=== PATIENT | male | born 1975 | race Two or more races ===

== ENCOUNTER 2021-07-05 09:26 | Emergency (ER) | payer BC, SELFPAY ==
[2021-07-05 09:34] VITALS: BP 145/95; PULSE 94; RESP 16; TEMP 36.6; O2SAT 100; BMI 35.9
--- NOTE | 2021-07-05 09:51 | ED_ITS ---
HPI - GI Bleed General Chief complaint: Urogenital-Male Stated complaint: HEMRHOIDS Time Seen by Provider: 07/05/21 09:34 Source: patient Mode of arrival: ambulatory Limitations: no limitations History of Present Illness HPI Narrative: 45-year-old male with a past medical history of diabetes and hypertension presenting to the ED with complaints of blood on toilet paper when he wipes due to his hemorrhoids for the past 2 days after he ate spicy food. He went to an urgent care prior to arrival and they explained to him that he would have to come here for further evaluation treatment. He denies any other sympto ms complaints or concerns at this time. MD complaint: blood on toilet paper (Due to hemorrhoids) Onset (ago): day(s) (Past 2 days) Pain Consistency: constant Severity: mild Relieving factors: none Exacerbating factors: bowel movement Context: hemorrhoids Associated symptoms: denies other symptoms Treatments Prior to Arrival: none Related Data Previous Rx's Medication Instructions Recorded acetaminophen 500 mg tablet 1,000 mg PO QID PRN #14 tab 07/05/21 (Tylenol Extra Strength) docusate sodium 100 mg capsule 100 mg PO BID PRN #14 cap 07/05/21 (Colace) hydrocortisone acetate 25 mg 25 mg WI BID #12 ea 07/05/21 rectal suppository (Anucort-HC) polyethylene glycol 3350 17 17 g PO BID 7 Days #238 g 07/05/21 gram/dose oral powder (Miralax) tramadol 50 mg tablet 50 mg PO Q8H PRN #14 tab 07/05/21 Allergies Allergy/AdvReac Type Severity Reaction Status Date / Time No Known Allergies Allergy Unverified 06/02/20 17:53 Review of Systems Review of Systems: Constitutional : No Weight loss, No Fever, No Chills, No Night Sweats, No Fatigue, NoMalaise ENT/Mouth: No ear pain, No sore throat, No Difficulty swallowing Cardiovascular : No Chest Pain, No SOB, No Dyspnea on Exertion, No Orthopnea, NoEdema, No Palpitations Respiratory : No Cough, No Sputum, No Wheezing, No Dyspnea Gastrointestinal : Positive hemorrhoids with blood on toilet paper, No Nausea, No Vomiting, No abdominal pain, No Diarrhea, No blood streaked emesis, No coffee-ground emesis, No gross hematemesis, No blood streak stool, No gross hematochezia, No Melena Genitourinary : No irregular bleeding, No Dysuria, No Urinary Frequency, No Hematuria,No Urinary Incontinence, No Urgency, No Flank Pain Musculoskeletal : No joint pain, No Myalgias, No Joint Swelling Skin : No Skin Lesions, No rash Neuro : No Weakness, No Numbness, No Paresthesias, No Loss of Consciousness, NoDizziness, No Headache Psych : No Social Issues, Heme/Lymph: No Bruising, No Bleeding,No Lymphadenopathy Endocrine : No Polyuria, No Polydipsia, No Temperature Intolerance Yes all other systems are reviewed and are negative [facility] Past Medical History Attestation statement: The following information was validated with the patient. Medical History Bradycardia Diabetes HTN (hypertension) Physical Exam Vital Signs: Vital Signs: Last Vital Signs Temp 97.8 F 07/05/21 09:34 Pulse 94 07/05/21 09:34 Resp 16 07/05/21 09:34 BP 145/95 H 07/05/21 09:34 Pulse Ox 100 07/05/21 09:34 Body Mass Index 35.9 vital signs have been reviewed as normal and appeared to be correct. Blood pressure hypertensive 145/95 Heart rate normal. Respiration rate normal. Temperature normal. Oxygen saturation normal. Appearance: Alert. Oriented X3. No acute distress. Head: Normal external exam. Normocephalic. Eyes: PERRLA. EOMI. Conjunctiva and sclera normal. Eyelids normal. ENT: Pharynx normal. Uvula midline. Moist mucous membranes. Neck: Normal inspection. Neck supple. FROM. No adenopathy. No meningeal signs. CVS: Normal heart rate and rhythm. Heart sound normal. No murmurs noted. Pulses normal throughout. Respiratory: No respiratory distress. Painless inspiration. Breath sounds no rmal. No wheezes/rales/rhonchi noted. Chest nontender. No accessory muscle usage noted or decreased air movement noted. Abdomen: Soft and nontender. Nondistended. No guarding. No rigidity. Bowel so unds normal in all 4 quadrants. No distention noted. No organomegaly noted. No visible injury noted. No rebound tenderness. Negative Rovsing sign. Negative obturator's sign. Negative psoas sign. Negative Padron sign. : Supervised by MARKUS Li-patient noted to have 1 medium-sized external thrombosed hemorrhoid noted that already appears to open on its own. No other hemorrhoids noted. Back: Full range of motion noted. Skin: Skin warm and dry. Normal skin color. Normal skin turgor. No rashes/lesions/lacerations noted. Extremities: Extremities exhibit normal range of motion. Extremities nontender. Neuro: Oriented X 3. No motor deficit. No sensory deficit. Reflexes normal. Normal steady gait. Course Course Course Narrative: 45-year-old male with a past medical history of diabetes and hypertension presenting to the ED with complaints of blood on toilet paper when he wipes due to his hemorrhoids for the past 2 days after he ate spicy food. He went to an urgent care prior to arrival and they explained to him that he would have to come here for further evaluation treatment. He denies any other symptoms complaints or concerns at this time. On exam patient noted to have an external thrombosed hemorrhoid that already opened on its own therefore was able to manually express the blood clots out. Patient tolerated procedure well. No complications. Patient reports he feels moderate symptomatic relief. I explained to him that we will give him MiraLax and Colace along with topical cream for his hemorrhoids and pain meds although explained to him that the pain med can make him constipated and make his hemorrhoids worse therefore he needs to be careful about this he understands this. Will also refer to Dr. Frankel the general surgeon for further evaluation treatment along with instructions to return if any new or worsening symptoms to follow up with primary care provider as well. Patient understands agrees with this plan. MDM - GI Bleed Medical Records Attestation: I reviewed the patient's medical records. Procedures Abscess I/D Site: other (Hemorrhoid) Side (if applicable): right Technique: other (Manual expression) Sent for culture/gram staining?: No Irrigation: Yes Packing used?: none Complications: other (No complications) Discharge Plan Discharge Clinical Impression: Hemorrhoids, external, thrombosed Patient Disposition: Home, Self-Care Instructions: Hemorrhoids (ED) Prescriptions: New polyethylene glycol 3350 [Miralax] 17 gram/dose powder 17 g PO BID 7 Days Qty: 238 RF: 0 docusate sodium [Colace] 100 mg capsule 100 mg PO BID PRN (Reason: Constipation) Qty: 14 RF: 0 tramadol 50 mg tablet 50 mg PO Q8H PRN (Reason: pain) Qty: 14 RF: 0 acetaminophen [Tylenol Extra Strength] 500 mg tablet 1,000 mg PO QID PRN (Reason: fever or pain) Qty: 14 RF: 0 hydrocortisone acetate [Anucort-HC] 25 mg suppository 25 mg WI BID Qty: 12 RF: 0 Referrals: Temo Frankel MD [Physician] - 1 day (External thrombosed hemorrhoids) Stand Alone Forms: Work/School Release Print Language: Nauruan
[2021-07-05] MEDS: Cocoa Butter/Zinc Oxide SUPP.RECT 1 SUPP PR (10:04)
== END 2021-07-05 10:28 | disposition home or self-care (01) ==
LOC: HO.ED 10:05
PROVIDERS: Emergency Provider Emergency Medicine Emergency Medical Services
DX: K64.5 Perianal venous thrombosis (principal); E11.9 Type 2 diabetes mellitus without complications; I10 Essential (primary) hypertension
CPT/HCPCS: 99284

== ENCOUNTER → 2021-07-12 10:36 | Outpatient (BNVA) | payer BC, SELFPAY | PROVIDERS: PCP Internal Medicine; Referring Provider Internal Medicine; Visit Provider Surgery ==

== ENCOUNTER 2021-09-27 10:52 | Outpatient (REF) | payer BC, SELFPAY ==
[2021-09-27 12:24] LABS: Binax Internal Control QC Valid; Binax Now Covid-19 Ag Positive (Negative)
== END 2021-09-27 10:53 | disposition home or self-care (01) ==
LOC: HO.LAB 10:52
PROVIDERS: Visit Provider Internal Medicine
DX: Z20.822 Contact with and (suspected) exposure to COVID-19 (principal)
CPT/HCPCS: C9803